=== PATIENT | female | born 1995 | race Two or more races ===

== ENCOUNTER 2016-12-12 16:11 | Emergency (ER) | payer OTHER ==
[2016-12-12] MEDS ORDERED: SODIUM CHLORIDE 0.9% 1,000 ML ONE (17:05)
[2016-12-12 17:18] LABS: ABSOLUTE NEUTROPHIL COUNT 7.2 K/mm3 (1.8-7.7); BASO # 0.1 K/mm3 (0.0-0.2); BASO % 0.8 % (0.2-1.0); EOS # 0.1 (0.0-0.5); EOS % 0.7 % (0.9-2.9); HEMATOCRIT 40.5 % (37.0-47.0); HEMOGLOBIN 13.2 gm/l (12.0-16.0); IMM NEUT% 0.4 % (0-1); LYMPH # 1.8 (1.0-4.8); LYMPH % 18.3 % (15-45); MEAN CORPUSCULAR HGB CONC 32.6 g/dl (33.0-37.0); MEAN PLATELET VOLUME 10.3 fl (7.4-10.4); MONO # 0.4 (0.0-0.8); MONO % 4.3 % (4-12); NEUT % 75.5 % (43-75); PLATELET COUNT 261 K/mm3 (130-400); RED CELL DISTRIBUTION WIDTH 13.3 % (11.5-14.5)
[2016-12-12 17:22] LABS: CALCIUM 9.7 mg/dL (8.6-10.3)
== END 2016-12-12 18:30 | disposition home or self-care (01) ==
LOC: ED 16:11
DX: R55 Syncope and collapse (principal); R00.2 Palpitations
CPT/HCPCS: 84703; 85025; 80048; 99283 ×2; 93005; J7030